=== PATIENT | male | born 1985 | race Caucasian/White ===

== ENCOUNTER 2021-08-24 13:34 | Emergency (ER) | payer MEDICAID ==
[~2021-08-24] VITALS: Ht 157.5 cm; Wt 59.0 kg
--- NOTE | 2021-08-24 13:41 | NUR ---
Patient to ER bed 7 to gown for evaluation. Side rails up. Report given to DAY SANTOS
[2021-08-24 13:42] VITALS: BP_SYST 152
--- NOTE | 2021-08-24 13:42 | NUR ---
PT C/O ABSCESS ON UPPER LIP AND BILATERAL NARES
--- NOTE | 2021-08-24 13:50 | NUR ---
Dr Callejas evaluating patient at bedside
[2021-08-24 14:06] LABS: BASOPHILS # (AUTO) 0.1 K/uL (0.0-0.2); BASOPHILS % (AUTO) 0.6 % (0.0-2.0); EOSINOPHILS # (AUTO) 0.1 K/uL (0.0-0.4); EOSINOPHILS % (AUTO) 0.8 % (0.0-4.0); HEMATOCRIT 34.3 % (36-54); LYMPHOCYTES # (AUTO) 1.7 K/uL (1.0-5.5); LYMPHOCYTES % (AUTO) 9.8 % (20.5-51.5); MEAN CORPUSCULAR HEMOGLOBIN 22 pg (27-31); MEAN CORPUSCULAR HGB CONC 32 % (32-36); MEAN CORPUSCULAR VOLUME 67 fL (79.0-98.0); MONOCYTES # (AUTO) 0.8 K/uL (0.0-1.0); MONOCYTES % (AUTO) 4.7 % (1.7-9.3); NEUTROPHILS # (AUTO) 14.5 K/uL (1.8-7.7); NEUTROPHILS % (AUTO) 84.1 % (40.0-70.0); PLATELET COUNT (AUTO) 409 K/uL (130-430); RED CELL DISTRIBUTION WIDTH 21.5 % (9.0-15.0); WHITE BLOOD COUNT (AUTO) 17.2 K/uL (4.8-10.8)
[2021-08-24 14:24] LABS: CREATININE 0.94 mg/dL (0.55-1.30); POTASSIUM 3.3 mmol/L (3.5-5.1)
[2021-08-24 14:29] LABS: ALBUMIN 3.1 g/dL (3.4-4.8); C-REACTIVE PROTEIN QUANT 5.3 mg/dL (0-0.5); TOTAL BILIRUBIN 0.1 mg/dL (0.0-1.0)
--- NOTE | 2021-08-24 14:47 | NUR ---
covid swab collected at bedside and sent to lab
[2021-08-24] MEDS ORDERED: CLINDAMYCIN 600 mg/50mL D5W 50 ML IV ONE (15:00)
[2021-08-24 16:41] VITALS: BP_SYST 152
--- NOTE | 2021-08-24 16:44 | NUR ---
Called [facility] to give report , per [facility] call back in 10 to 15 minutes.
--- NOTE | 2021-08-24 17:04 | NUR ---
Called [facility] , report given to Dillon charge nurse, pt [id number], VSS.
--- NOTE | 2021-08-24 17:20 | NUR ---
Patient does not wish to proceed with medical care recommended by Dr Callejas . Patient given information related to possible complications, up to and including , which could occur as a result of leaving hospital at this time. Patient verbalizes understanding of risks involved leaving against medical advice. Patient has signed AMA form.
== END 2021-08-24 17:20 | disposition left against medical advice (07) ==
LOC: SED 13:34
DX: L02.01 Cutaneous abscess of face (principal); Z88.1 Allergy status to other antibiotic agents; Z20.822 Contact with and (suspected) exposure to COVID-19
CPT/HCPCS: 36415; 80053; 83605; 85025; 86140; 87040; 87426; 96365; 99284; J3490